=== PATIENT | male | born 1990 | race Caucasian/White ===

== ENCOUNTER 2020-01-14 06:39 | Emergency (ER) | payer OTHER ==
[~2020-01-14] VITALS: Ht 182.9 cm; Wt 89.4 kg
[2020-01-14 06:41] VITALS: BP 144/85
--- NOTE | 2020-01-14 08:00 | NUR ---
CALL TO [facility] REGARDING DELAY IN XRAY READ. TECH REPORTS THEY ARE WORKING ON IT.
--- NOTE | 2020-01-14 08:44 | NUR ---
Patient given discharge instructions and they have confirmed that they understand the instructions. Patient ambulatory with steady gait.
== END 2020-01-14 08:45 | disposition home or self-care (01) ==
LOC: ED 07:37
DX: S90.32XA Contusion of left foot, initial encounter (principal); W17.89XA Other fall from one level to another, initial encounter; Y93.89 Activity, other specified; Y92.39 Other specified sports and athletic area as the place of occurrence of the external cause; Y99.8 Other external cause status
CPT/HCPCS: 99283

== ENCOUNTER 2020-05-17 02:31 | Emergency (ER) | payer OTHER ==
[~2020-05-17] VITALS: Ht 185.4 cm; Wt 93.0 kg
--- NOTE | 2020-05-17 03:00 | NUR ---
pt states having abdominal pain since saturday. pt states it feels like he is bloaded and needs to pass gas. pt placed on pulse ox and bp cuff. gaurded movement in bed, resp even/unlabored. awaiting erp eval
[2020-05-17] MEDS ORDERED: ONDANSETRON ODT 4 MG ONE (03:21)
[2020-05-17] MEDS ORDERED: DICYCLOMINE 10 MG CAPSULE PO ONE (03:30)
[2020-05-17] MEDS ORDERED: ONDANSETRON ODT 4 MG PO ONE (03:30)
[2020-05-17 03:34] LABS: MICROSCOPIC NOT IND
[2020-05-17 03:39] LABS: BASOPHILS % (AUTO) 0 % (0-1); EOSINOPHILS % (AUTO) 1 % (1-7); LYMPHOCYTES % (AUTO) 11 % (22-44); MEAN CORPUSCULAR HEMOGLOBIN 29.6 pg (27.5-34.5); MEAN CORPUSCULAR HGB CONC 35.2 g/dL (33.2-36.2); MEAN PLATELET VOLUME 7.9 fL (7.4-10.4); MONOCYTES % (AUTO) 7 % (2-9); NEUTROPHILS % (AUTO) 81 % (42-75); PLATELET COUNT 266 x10^3/uL (130-400); RED BLOOD COUNT 5.44 x10^6/uL (4.38-5.82); RED CELL DISTRIBUTION WIDTH 13.5 % (9.4-14.8)
[2020-05-17 03:40] LABS: MD NO
[2020-05-17 03:45] LABS: ANION GAP 4 mmol/L (5-15); CALCIUM 9.2 mg/dL (8.5-10.1); CHLORIDE 104 mmol/L (98-107); CREATININE 1.08 mg/dL (0.7-1.3)
[2020-05-17 03:46] LABS: ALANINE AMINOTRANSFERASE 31 U/L (12-78); ALBUMIN 3.8 g/dL (3.4-5.0)
[2020-05-17 03:48] LABS: ALKALINE PHOSPHATASE 79 U/L (45-117); BILIRUBIN,TOTAL 0.7 mg/dL (0.2-1.0); TOTAL PROTEIN 7.8 g/dL (6.4-8.2)
--- NOTE | 2020-05-17 04:21 | NUR ---
pt back from ct scan. pt states feeling a lot better from po medications given earlier. denies need for iv meds at this time
[2020-05-17] MEDS ORDERED: OMNIPAQUE 350 MG/ML, 100ML BOTTLE ONE (04:23)
[2020-05-17] MEDS ORDERED: MORPHINE SULFATE 4 MG/ML, 1ML IVPush PRN (04:30)
[2020-05-17] MEDS ORDERED: ONDANSETRON 2MG/ML, 2ML IVPush ONE (04:30)
[2020-05-17] MEDS ORDERED: SODIUM CHLORIDE FLUSH 10ML SYR IVF ONE (04:30)
[2020-05-17 04:54] VITALS: BP 117/71
--- NOTE | 2020-05-17 04:54 | NUR ---
PT STATES FEELING A LOT BETTER, NO OTHER NEEDS AT THIS TIME
== END 2020-05-17 05:47 | disposition home or self-care (01) ==
LOC: ED 05:00
DX: A08.4 Viral intestinal infection, unspecified (principal)
CPT/HCPCS: 36415; 74021; 74177; 80053; 81003; 83690; 85025; 99285; Q0162; Q9967